=== PATIENT | male | born 1990 | race Caucasian/White ===

== ENCOUNTER 2016-12-18 11:38 | Inpatient (IN) | payer SELFPAY ==
[2016-12-23] MEDS ORDERED: AUGMENTIN 875-1 EACH PO (13:35)
[2016-12-23] MEDS ORDERED: NORCO 5-325 TA1 EACH PO (13:35)
[2016-12-23] MEDS ORDERED: ZOFRAN4 MG PO (13:35)
--- NOTE | 2016-12-25 16:25 | HP ---
ADMIT: 12/18/2016 RM/LOC: [facility] MR#: [id number] [address] [facility] [place], [place] [address] JENNIFER SILVA [address] [place] [address] Pre-OP History and Physical SEX: M AGE: 26 : 1990 DATE OF SERVICE: 12/18/2016 REASON FOR VISIT: Probable appendicitis. HISTORY OF PRESENT ILLNESS: This is a 26-year-old, [place]serr[place]ian-speaking male who comes in with significant right lower quadrant abdominal pain. This started off yesterday up higher, has been going on for a little over [address] scan was done secondary to a white count and abdominal pain that looks like an acute appendicitis or even a partial small bowel obstruction. I think it is just an ileus, most likely with acute appendicitis. He is a little apprehensive. I had the interpreter for the deaf here his relative who I believe is his mom visiting with him, who speaks Wolof quite fluently and at this point, he is ready to go to the operating room. I told him it could be a very weird thing like a Meckel's diverticulum, but he is tender enough that I think he needs to go for a laparoscopic exploration, probable appendectomy. They are agreeable now and we will proceed. PAST MEDICAL HISTORY: None. PAST SURGICAL HISTORY: No surgeries. MEDICATIONS: He takes some medicine from [place] and when we looked at it up, it looks like it is kind of for motion sickness. ALLERGIES: HE HAS NO KNOWN DRUG ALLERGIES SOCIAL HISTORY: Denies significant tobacco, alcohol, or drugs. PHYSICAL EXAMINATION: GENERAL: He is alert and oriented. He definitely does not feel well. HEENT: Sclerae are nonicteric. His extraocular muscles are intact. CHEST: Clear anteriorly. HEART: Regular rate and rhythm. ABDOMEN: Diffusely tender but definite rebound in the right lower quadrant. No obvious mass or organomegaly. Positive bowel sounds. EXTREMITIES: Without any clubbing, cyanosis, or edema. ASSESSMENT AND PLAN: Planned laparoscopic possible open appendectomy. Star Cordero MD/ awilda JOB #: [id number] CC: Star Cordero, Attending Physician Star Cordero, Family Physician
--- NOTE | 2016-12-28 18:06 | ER ---
ADMIT: 12/18/2016 RM/LOC: [address] [facility] MR#: [id number] [address] [facility] [place], [place] [address] JENNIFER SILVA [address] [place] [address] Emergency Room Report SEX: M AGE: 26 : 1990 DATE: 12/18/2016 ADDENDUM: CHIEF COMPLAINT: Abdominal pain. HISTORY OF PRESENT ILLNESS: This is a 26-year-old male, who started having abdominal pain yesterday. He describes it as more intermittent and also has had 2 bouts of diarrhea, 1 episode of vomiting. Describes it is his lower abdomen mostly, points suprapubic, but then goes to the right lower quadrant. CT of his abdomen was done. It shows a small bowel obstruction versus appendicitis with a white count of 15. I did speak with Dr. Cordero regarding this patient. He is going to look at the CT and then come see the patient. CLINICAL IMPRESSION: Appendicitis versus small bowel obstruction. DISPOSITION: He is stable at admit. NAVEEN Bob / Virgilio Llanos MD / rosital JOB #: [id number] CC: Star Cordero MD, Attending Physician Star Cordero MD, Family Physician
--- NOTE | 2017-01-05 19:20 | DS ---
ADMIT: 12/20/2016 RM/LOC: [address] [facility] MR#: [id number] [address] [facility] [place], [place] [address] JENNIFER SILVA [address] [place] [address] Discharge Summary SEX: M AGE: 26 : 1990 ADMISSION DATE: 12/20/2016 DISCHARGE DATE: 12/22/2016 ADMITTING DIAGNOSIS: Acute appendicitis. DISMISSAL DIAGNOSIS: Acute gangrenous appendicitis with peritonitis and interloop abscesses. PROCEDURES: Laparoscopic appendectomy with washout. HOSPITAL COURSE: The patient was seen in the Emergency Department and transferred immediately to the OR. After surgery, the patient was an observation admit with routine med/surg orders. He transferred to the floor without any complications. Given the findings of his appendix, he was continued on IV antibiotic therapy. Overall, he recovered well while in the hospital. He tolerated advanced diet and had normal bowel function. Pain was controlled. He did have a little bit of nausea but was treated well with IV Zofran and oral Compazine. He tolerated oral pain medications. He continued to recover well. Vitals remained stable. He was able to discharge to home on 12/22/2016. DISCHARGE INSTRUCTIONS: 1. Change CHRISTO dressing daily. 2. Sponge baths until followup. 3. Follow up with Dr. Cordero this week. DISCHARGE MEDICATIONS: 1. Augmentin 875 b.i.d. 2. Oxford 5/325 1-2 q.4-6 hours p.r.n. 3. Zofran 4 mg q.6h p.r.n. NAVEEN Trinh / Star Cordero MD / vdg JOB #: [id number] CC: tSar Cordero MD, Attending Physician Star Cordero MD, Family Physician
--- NOTE | 2017-01-05 19:20 | OR ---
ADMIT: 12/18/2016 RM/LOC: [address] [facility] MR#: [id number] [address] [facility] [place], [place] [address] JENNIFER SILVA [address] [place] [address] Operative/Delivery Room Report SEX: M AGE: 26 : 1990 SURGERY DATE: 12/18/2016 SURGEON: Star Cordero MD PREOPERATIVE DIAGNOSIS: Acute appendicitis. POSTOPERATIVE DIAGNOSIS: Acute gangrenous appendicitis with peritonitis and interloop abscesses. PROCEDURE: Laparoscopic appendectomy, wash out, and clean out of the abdomen; placement of a 19-Ecuadorean round drain. INDICATION FOR PROCEDURE: Please see H and P. DESCRIPTION OF PROCEDURE: After the risks, benefits, possible complications, and the alternatives had been explained, and informed consent had been obtained, the patient was taken back to the operating room, underwent general endotracheal tube anesthesia, and the surgical field was prepped and draped in a sterile manner. An infraumbilical incision was made. The Veress needle was inserted. The abdomen was insufflated with CO2. Once there was adequate insufflation, a 5 mm port was placed. The camera was placed through this port site under direct visualization, then placed a 5 mm suprapubic and a 12 mm left lower quadrant port. Upon entrance and inspection, there was a fair amount of exudate and peritonitis within the abdomen. The appendix was kind of hanging down into the right pelvis, fair amount of fluid there, even some interloop small bowel abscesses, slowly freed these all up, cleaned him up kept washing things, trying to make sure there were no more interloop abscesses is running in the bowel. The appendix, like I said, was kind of brought off the pelvic side wall. It appeared gangrenous, it was slowly freed up, made a window in the mesoappendix, across with an Endo-BRNEDA stapler across the base with the Endo BRENDA stapler, was placed EndoCatch bag, removed through the left lower quadrant port site. I then proceeded to continue irrigating everything as good as possible, trying to clean all these, like I said, a little bit of exudate fluid and stuff up to prevent any intraabdominal abscess. I did place a 19-Ecuadorean round drain. They came out through the suprapubic port site. Once that was done, I injected 0.5% Marcaine for pain control. Closed the fascia of the left lower quadrant port site with an 0- Polysorb suture using the suture passer. All the ports were removed. The skin was closed with 4-0 Monocryl. Drain stitch was placed on the drain and suprapubic site. He tolerated it well. He was extubated, taken to recovery room in stable and satisfactory condition. Star Cordero MD/ modl JOB #: [id number] CC: Star Cordero MD, Attending Physician ADMIT: 12/18/2016 RM/LOC: [address] [facility] MR#: [id number] [address] [facility] [address] [place] [id number] JENNIFER SILVA [address] [place] [address] Operative/Delivery Room Report SEX: M AGE: 26 : 1990 Star Cordero MD, Family Physician
== END 2016-12-22 13:55 | disposition home or self-care (01) | DRG 340 ==
LOC: ER 11:38 → SSS 14:25 → 6PED 17:12
PROVIDERS: ADMIT Surgery
PROC: 0DTJ4ZZ Resection of Appendix, Percutaneous Endoscopic Approach (ICD-10-PCS; principal; 2016-12-18)
DX: K35.2 Acute appendicitis with generalized peritonitis (principal)